=== PATIENT | male | born 2005 | race Caucasian/White ===

== ENCOUNTER 2025-05-07 15:40 | Emergency (ER) | payer OTHER, SELFPAY ==
[2025-05-07 15:41] VITALS: BP 179/108; PULSE 109; RESP 18; TEMP 36.9; O2SAT 99; BMI 29.9
--- NOTE | 2025-05-07 15:46 | ECG_ITS ---
[employer] [facility] Test Date: 2025-05-07 Pat Name: Trae Francis Department: Room: Gender: Male Operations Administrator: : 2005 Requested By: Danii Johnson Order Number: [id number] Mendez MD: Sade Dalton M.D. Measurements Intervals [place] Rate: 111 P: 50 MT: 132 QRS: 18 QRSD: 139 T: 192 QT: 322 QTc: 438 Interpretive Statements SINUS TACHYCARDIA LEFT ATRIAL ENLARGEMENT [-0.15mV P-WAVE IN V1/V2] VENTRICULAR PREEXCITATION / WPW CRITICAL TEST RESULT No previous ECG available for comparison Electronically Signed On 05-07-2025 23:39:44 COTTON AGENT by Sade Dalton M.D. [email or web address] [id number]
--- NOTE | 2025-05-07 15:57 | XRR_ITS ---
PROCEDURE INFORMATION: Exam: XR Chest Exam date and time: 05/07/2025 3:57 PM Age: 20 years old Clinical indication: Pain; Angina pectoris; Additional info: cathy Fuentes TECHNIQUE: Imaging protocol: Radiologic exam of the chest. Views: 1 view. COMPARISON: No relevant prior studies available. FINDINGS: Lungs: Unremarkable. No consolidation. Pleural spaces: Unremarkable. No pleural effusion. No pneumothorax. Heart/Mediastinum: Unremarkable. No cardiomegaly. Bones/joints: Unremarkable. XR/XR chest 1V portable [id number] IMPRESSION: No acute findings.
[2025-05-07 16:24] LABS: Hematocrit 41.0 % (37-53); Hemoglobin 14.20 g/dL (11.27-16.99); Mean Corpuscular HGB Conc 34.6 g/dL (30-55); Mean Corpuscular Hemoglobin 29.3 pg (27-33); Mean Corpuscular Volume 84.7 fl (82-101); Nucleated Red Blood Cells % 0 %; Platelet Count 238 10^3/cmm (157-399); Red Blood Count 4.84 10^6/uL (3.85-5.65); White Blood Count 19.25 10^3/uL (3.29-11.43)
--- NOTE | 2025-05-07 16:37 | W.ED.DIZZY ---
HPI - Dizziness General: Chief Complaint: Dizziness Stated Complaint: SI/ Dizziness Time Seen by Provider: 05/07/25 15:42 Source: patient Mode of arrival: ambulatory Limitations: no limitations History of Present Illness: HPI Narrative: This patient is a 20-year-old male with a history of Winct-Jaoocsgdm-Ehjau syndrome who presents with dizziness and localized chest pain that began at approximately 1330 this afternoon. Does not report anything specific with onset, came on all of a sudden. Notes that the chest pain has since resolved, it was centrally located and nonradiating. Notes that currently he is undergoing medication changes for psychiatric medications, he used to be on medications for his with Parkinson White and used to see cardiology but has not done this in some time. He denies ongoing chest pain, palpitations, syncope, shortness of breath, diaphoresis, nausea, vomiting, fever, lightheadedness beyond the dizziness he is reporting, leg swelling, hemoptysis, recent illness, or trauma. He reports no family history of sudden cardiac or arrhythmia. Reports no personal history of heart attacks. At this time he is minimally tachycardic, hypertensive. In regards to his psychiatric history, he denies any current suicidal ideations, homicidal ideations, or hallucinations of any kind. Denies any drug or alcohol use. MD elicited complaint: dizziness Pertinent past history: other (Wnaff-Jxgwwztyb-Ggitv) Onset (ago): hour(s) Timing: sudden onset Description: room spinning Context: change in medication History of similar symptoms: Yes Associated symptoms: Reports chest pain; Denies chills, headache(s), nausea, palpitations or vomiting Associated neuro symptoms: Deny numbness in extremities Related Data Home Medications ?Medication ?Instructions ?Recorded ?Confirmed sertraline 50 mg tablet (Zoloft) 50 mg PO DAILY 05/07/25 05/07/25 Allergies Allergy/AdvReac Type Severity Reaction Status Date / Time No Known Allergies Allergy Verified 04/05/21 15:02 Review of Systems General: Reports: 10 or more systems reviewed and unremarkable except in HPI and below Const: Denies: fever(s), chills or fatigue Eyes: Denies: change in vision ENMT: Denies: throat pain, ear or mastoid pain or nasal discharge Card: Reports: chest pain; Denies: palpitations, swelling of feet/ankles or lightheadedness Resp: Denies: dyspnea, productive cough or wheezing GI: Denies: abdominal pain, nausea, vomiting, diarrhea or constipation : Denies: flank pain, difficulty urinating, dysuria or urinary frequency Musc: Denies: neck pain, back pain or joint pain Skin/Breast: Denies: rash Neuro: Reports: dizziness; Denies: headache(s), numbness in extremities or weakness in extremities Psych: Denies: difficulty concentrating, visual hallucinations, auditory hallucinations, suicidal ideation or homicidal ideation PFSH ED PFSH: Social History Smoking and tobacco/nicotine status: never used tobacco/nicotine Alcohol intake: never Substance/Drug Use: never Do you think of yourself as: Straight/Heterosexual Current gender identity: Male Physical Exam Const: COMMON NORMALS: no acute distress, patient oriented x3 and no limitations GENERAL APPEARANCE: cooperative, comfortable and well developed ORIENTATION/CONSCIOUSNESS: Yes awake, Yes oriented to person, Yes oriented to place and Yes oriented to time HENMT: COMMON NORMALS: normocephalic, atraumatic and hearing grossly normal bilaterally HEAD & SCALP: normocephalic and atraumatic Eye: COMMON NORMALS: Equal, round and reactive pupils present, EOMs intact bilaterally and conjunctivae normal CONJUNCTIVA: Yes conjunctivae normal PUPIL: Yes Equal, round and reactive pupils present Resp: COMMON NORMALS: normal respiratory effort, No retractions, No use of accessory muscles and clear to auscultation bilaterally AUSCULTATION: clear to auscultation bilaterally Cardio: COMMON NORMALS: regular rate, regular rhythm, No clicks present (Cardio), No murmurs present (Cardio) and No rub (Cardio) RATE: regular rate RHYTHM: regular rhythm Extremity: COMMON NORMALS: normal to inspection, full ROM and capillary refill normal Neuro: COMMON NORMALS: patient oriented x3, moves all extremities, no focal motor deficits and no sensory deficits noted SENSORIUM/ORIENTATION: Yes oriented to person, Yes oriented to place and Yes oriented to time Psych: THOUGHT CONTENT: No Suicidality present, No Homicidality present and No Hallucination(s) present Skin: COMMON NORMALS: no rashes or lesions noted GENERAL SKIN EXAM: no rashes or lesions noted Course Vital Signs: Vital signs: Vital Signs Temperature 98.5 F 05/07/25 15:41 Pulse Rate 71 05/07/25 18:46 Respiratory Rate 18 05/07/25 18:06 Blood Pressure 135/87 05/07/25 18:46 Pulse Oximetry 96 05/07/25 18:46 Oxygen Delivery Me thod Room Air 05/07/25 18:06 MDM - Dizziness Medical Decision Making Patient is a 20-year-old male history of Mulyd-Mthmwuzxp-Qgxnl syndrome presented with transient dizziness and localized chest pain, which has since resolved. On exam, he was hypertensive and tachycardic, but his heart rate normalized with IV fluids and his dizziness improved. Lab studies notable for leukocytosis with a left shift, will CMP, electrolytes, troponin, TSH, urinalysis, and chest x-ray were all within normal limits. Given his clinical stability, normal workup aside from elevated white blood cell count, and improvement with fluid resuscitation, the leukocytosis is most consistent with reactive process related to dehydration and physiologic stress. There is no evidence of acute infection, myocardial injury, or other endorgan dysfunction. Patient remains clinically stable. I spoke with on-call tool and fixture repairer, Dr. Phelps, who agrees that this can be referred to outpatient cardiology for follow-up regarding Yxfsy-Kahqheeeu-Osvjy and ongoing medication management. He was counseled to return promptly for recurrent chest pain, palpitations, syncope, shortness of breath, or any concerning new symptoms. He had mentioned that recently he was feeling suicidal, but not suicidal at this time I do not feel that he requires admission to the neuropsychiatric unit at this time. Lab Data 05/07/25 16:14 05/07/25 16:14 Radiology Impressions Chest X-Ray 05/07/25 15:57 IMPRESSION: No acute findings. Laboratory Results WBC 19.25 10^3/uL (3.29-11.43) H 05/07/25 16:14 RBC 4.84 10^6/uL (3.85-5.65) 05/07/25 16:14 Hgb 14.20 g/dL (11.27-16.99) 05/07/25 16:14 Hct 41.0 % (37-53) 05/07/25 16:14 MCV 84.7 fl (82-101) 05/07/25 16:14 MCH 29.3 pg (27-33) 05/07/25 16:14 MCHC 34.6 g/dL (30-55) 05/07/25 16:14 RDW 13.1 % (12.1-15.1) 05/07/25 16:14 Plt Count 238 10^3/cmm (157-399) 05/07/25 16:14 MPV 11.1 fL (7.4-10.4) H 05/07/25 16:14 Neut % (Auto) 89.7 % 05/07/25 16:14 Lymph % (Auto) 3.8 % 05/07/25 16:14 [place] % (Auto) 5.6 % 05/07/25 16:14 Eos % (Auto) 0.1 % 05/07/25 16:14 Baso % (Auto) 0.2 % 05/07/25 16:14 Neut # (Auto) 17.28 10^3/uL (1.8-7.7) H 05/07/25 16:14 Lymph # (Auto) 0.7 10^3/uL (0.8-4.8) L 05/07/25 16:14 [place] # (Auto) 1.1 10^3/uL (0.2-0.9) H 05/07/25 16:14 Eos # (Auto) 0.0 10^3/uL (0.0-0.8) 05/07/25 16:14 Baso # (Auto) 0.0 10^3/uL (0.0-0.1) 05/07/25 16:14 Nucleated RBC % (auto) 0 % 05/07/25 16:14 Nucleated RBCs # 0.0 /100WBC 05/07/25 16:14 Sodium 142 mmol/L (136-145) 05/07/25 16:14 Potassium 3.6 mmol/L (3.5-5.1) 05/07/25 16:14 Chloride 105 mmol/L (98-107) 05/07/25 16:14 Carbon Dioxide 24 mmol/L (22-29) 05/07/25 16:14 Anion Gap 16.6 (5-19) 05/07/25 16:14 BUN 11 mg/dL (6-20) 05/07/25 16:14 Creatinine 0.8 mg/dL (0.7-1.2) 05/07/25 16:14 GFR Calculation 122.0 mL/min (90-130) 05/07/25 16:14 Glucose 166 mg/dL (65-115) H 05/07/25 16:14 Calculated Osmolality 297 mOsm/kg (285-295) H 05/07/25 16:14 Calcium 9.7 mg/dL (8.5-10.5) 05/07/25 16:14 Magnesium 2.0 mg/dL (1.7-2.3) 05/07/25 16:14 Total Bilirubin 0.4 mg/dL (0.15-1.2) 05/07/25 16:14 AST 15 U/L (0-40) 05/07/25 16:14 ALT 18 U/L (0-41) 05/07/25 16:14 Alkaline Phosphatase 66 U/L (40-130) 05/07/25 16:14 Troponin T Baseline 8 ng/L (0-15) 05/07/25 16:14 Troponin T 120 Minute 9.18 ng/L (0-15) 05/07/25 18:00 Delta Troponin T 1.18 ABS# (0-10) 05/07/25 18:00 Total Protein 7.8 g/dL (6.6-8.7) 05/07/25 16:14 Albumin 5.1 g/dL (3.5-5.2) 05/07/25 16:14 Globulin 2.7 g/dL (1.3-4.6) 05/07/25 16:14 TSH 0.55 uIU/mL (0.27-4.20) 05/07/25 16:14 Urine Color Yellow (Yellow) 05/07/25 17:14 Urine Appearance Clear (CLEAR) 05/07/25 17:14 Urine pH 6.5 (5-7) 05/07/25 17:14 Ur Specific [place] 1.015 (1.005-1.030) 05/07/25 17:14 Urine Protein Negative (Negative) 05/07/25 17:14 Urine Glucose (UA) Negative (Normal) 05/07/25 17:14 Urine Ketones Negative (Negative) 05/07/25 17:14 Urine Blood Negative (Negative) 05/07/25 17:14 Urine Nitrate Negative (Negative) 05/07/25 17:14 Urine Bilirubin Negative (Negative) 05/07/25 17:14 Urine Urobilinogen 1.0 mg/dL (Negative) 05/07/25 17:14 Ur Leukocyte Esterase Negative (Negative) 05/07/25 17:14 Urine RBC 0-2 /hpf (0-2) 05/07/25 17:14 Urine WBC 0-5 /hpf (0-5) 05/07/25 17:14 Ur Squamous Epith Cells 0-5 /hpf (0-5) 05/07/25 17:14 Amorphous Sediment Not Reportable 05/07/25 17:14 Urine Bacteria None seen /hpf (NONE) 05/07/25 17:14 Hyaline Casts 0.40 /lpf 05/07/25 17:14 All radiology interpretation(s) finalized by discharge Discharge Plan Discharge Patient Disposition: Home Clinical Impression: WPW (Oyjry-Egmluimmo-Bkjdd syndrome) Condition: Stable Prescriptions: No Action sertraline [Zoloft] 50 mg tablet 50 mg PO DAILY Discharge Orders: Discharge ED (Routine); Ordered 05/07/25 Ordered By: Shayne Rajput Referrals: Eldon Marquez FNP [Primary Care Provider, [facility]] Patient Instructions: Patient Portal & Harpreet Instructions Activity Restrictions/Additional Instructions: WPW Discharge Instructions Diagnosis and Summary: You were evaluated in the emergency department for dizziness and chest pain. Your symptoms resolved after treatment with intravenous fluids. Your electrocardiogram (ECG) showed a pattern consistent with Wgvrx-Tvfxsxgeg-Wurog (WPW) syndrome, a condition where an extra electrical pathway in the heart can cause episodes of rapid heart rate (tachycardia). All other tests, including blood work and chest X-ray, were normal. What to Expect: WPW can cause episodes of rapid heart rate, dizziness, chest pain, palpitations, or fainting. Most people with WPW do well, but there is a small risk of serious heart rhythm problems. You will be referred to a labor specialist (tool and fixture repairer) for further evaluation and discussion of treatment options, including possible catheter ablation, which is a procedure to eliminate the extra pathway and is considered first-line therapy for symptomatic patients. When to Seek Immediate Care: Return to the emergency department or call 911 if you experience: - Severe chest pain or pressure - Fainting or near-fainting - Rapid, irregular, or pounding heartbeat that does not resolve within a few minutes - Shortness of breath or severe dizziness Medications and Safety: Do not take medications that slow the AV node (such as beta blockers, diltiazem, verapamil, digoxin, or amiodarone) unless specifically instructed by your tool and fixture repairer, as these can be dangerous in WPW. If you are prescribed any new medications, inform your providers about your WPW diagnosis. Self-Care and Monitoring: - Stay hydrated and avoid excessive caffeine or stimulants. - Learn to recognize symptoms of rapid heart rate. - If you experience palpitations, you may try vagal maneuvers (such as bearing down as if having a bowel movement or placing a cold towel on your face), but seek medical attention if symptoms persist. - Keep a record of any episodes of palpitations, dizziness, or chest pain, including duration and associated symptoms. Follow-Up: Attend your scheduled cardiology appointment. The specialist may discuss further testing or procedures, such as an electrophysiology study or catheter ablation, which is highly effective in preventing future episodes and reducing risk of serious complications. Activity: You may resume normal activities as tolerated, but avoid strenuous exercise until cleared by your tool and fixture repairer, especially if you experience any symptoms. Questions: If you have questions or concerns before your follow-up, contact your healthcare provider. Summary: WPW is treatable, and with proper follow-up and management, most people do well. Your labor specialist will guide you on the best long-term plan. Stand Alone Forms: Work/School Release Print Language: Arabic Coding Level of Care Code ED Welt Sole Layer for Andi Chandler
[2025-05-07 16:49] LABS: Troponin(5th) Baseline 8 ng/L (0-15)
[2025-05-07 16:52] LABS: Alanine Aminotransferase 18 U/L (0-41); Albumin Level 5.1 g/dL (3.5-5.2); Alkaline Phosphatase 66 U/L (40-130); Anion Gap 16.6 (5-19); Aspartate Amino Transferase 15 U/L (0-40); Blood Urea Nitrogen 11 mg/dL (6-20); Calcium 9.7 mg/dL (8.5-10.5); Carbon Dioxide 24 mmol/L (22-29); Chloride 105 mmol/L (98-107); Creatinine Clr Calc Pharmacy 148.8062; Globulin 2.7 g/dL (1.3-4.6); Glucose 166 mg/dL (65-115); Magnesium 2.0 mg/dL (1.7-2.3); Osmolality Calculated 297 mOsm/kg (285-295); Potassium 3.6 mmol/L (3.5-5.1); Sodium 142 mmol/L (136-145); Thyroid Stimulating Hormone 0.55 uIU/mL (0.27-4.20); Total Protein 7.8 g/dL (6.6-8.7)
[2025-05-07 17:23] LABS: Glucose Urine UA Negative (Normal); Nitrate Urine Negative (Negative); Specific Gravity, Urine 1.015 (1.005-1.030)
[2025-05-07 17:25] LABS: Add Urine Microscopic? YES
[2025-05-07 18:06] VITALS: BP 130/81; PULSE 81; RESP 18; O2SAT 97
--- NOTE | 2025-05-07 18:20 | ECG_ITS ---
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 Measurements Intervals [place] Rate: 69 P: -25 NE: 95 QRS: 19 QRSD: 158 T: 33 QT: 406 QTc: 437 Interpretive Statements SINUS RHYTHM WITH SHORT NE INTERVAL INTRAVENTRICULAR CONDUCTION DELAY [130+ ms QRS DURATION] Compared to ECG 05/07/2025 15:46:25 Short NE interval now present Intraventricular conduction delay now present Sinus tachycardia no longer present Atrial abnormality no longer present Ventricular preexcitation no longer present Electronically Signed On 05-07-2025 23:48:57 IMPLEMENTATION ARCHITECT by Sade Dalton M.D. [id number] [id number]
[2025-05-07 18:46] VITALS: BP 135/87; PULSE 71; O2SAT 96
[2025-05-07 18:48] LABS: Troponin 5 2HR 9.18 ng/L (0-15); Troponin 5 2HR Delta 1.18 ABS# (0-10)
--- NOTE | 2025-05-08 07:18 | DCPLANNER ---
messaged heart care for er f/u
== END 2025-05-07 18:47 | disposition home or self-care (01) ==
PROVIDERS: Emergency Provider Physician Assistant; PCP Nurse Practitioner Family
DX: I45.6 Pre-excitation syndrome (principal)
CPT/HCPCS: 36415; 71045; 80053; 81001; 83735; 84443; 84484; 85025; 93005; 99285; J7040